=== PATIENT | female | born 1965 | race Caucasian/White ===

== ENCOUNTER 2023-10-20 20:50 | Observation (INO) | payer OTHER, SELFPAY ==
[2023-10-20 18:11] VITALS: BP 127/77
[2023-10-20 18:25] VITALS: BP 115/56
[2023-10-20 18:47] LABS: % Eosinophils 1.5 % (0-6); % Immature Granulocytes 0.2 % (0-0.5); % Lymphocytes 29.5 % (20.5-51.1); % Monocytes 5.6 % (1.7-9.3); % Neutrophils 62.2 % (42.2-75.2); Absolute Basophils 0.1 10^3/uL (0-0.2); Absolute Eosinophils 0.1 10^3/uL (0-0.7); Absolute Lymphocytes 2.4 10^3/uL (1.2-3.4); Absolute Monocytes 0.5 10^3/uL (0.1-0.6); Hematocrit 37.7 % (37.0-47.0); Hemoglobin 13.4 g/dL (12.0-16.0); Mean Corp Hgb Conc. 35.5 g/dL (33.0-37.0); Mean Corpuscular Hgb 29.7 pg (27.0-31.0); Mean Corpuscular Volume 83.6 fL (81.0-99.0); Nucleated Red Blood Cells % 0 %; Platelet Count 241 10^3/uL (130-400); Red Blood Cell Count 4.51 10^6/uL (4.20-5.40); Red Cell Dist. Width 12.7 % (11.5-14.5); White Blood Cell Count 8.1 10^3/uL (4.8-10.8)
[2023-10-20 18:58] LABS: ALT (SGPT) 18 U/L (0-35); AST (SGOT) 25 U/L (14-36); Albumin 4.5 g/dl (3.5-5.0); Alkaline Phosphatase 87 U/L (38-126); Blood Urea Nitrogen 18 mg/dl (7-17); Calcium 9.8 mg/dl (8.4-10.2); Carbon Dioxide 29 mmol/L (22-30); Chloride 103 mmol/L (98-107); Glucose 87 mg/dl (70-99); Potassium 3.8 mmol/L (3.5-5.1); Sodium 139 mmol/L (135-145); Total Bilirubin 0.6 mg/dl (0.2-1.3); eGFR > 60.00
[2023-10-20 19:00] VITALS: BP 105/61; BMI 32.4
--- NOTE | 2023-10-20 19:36 | ED.GENMED ---
History of Present Illness
General
Chief Complaint: Visual Problem
Source: patient and spouse
Exam Limitations: none
Time Seen by Provider: 10/20/23 18:19
Nursing documentation reviewed up to this point in time: agreed with
History of Present Illness
History of Present Illness:
58-year-old female with no reported chronic medical issues who presents to the emergency room with her for evaluation of blurry vision. Patient reports onset of symptoms around 4:30 PM and have been constant since that time. She reports
blurred vision in her left eye only. She denies any vision loss. She denies any eye pain. She reports that she looked in the mirror and noticed that her left eye appeared to be dilated and asymmetric and so she came to the emergency room for
assessment. She denies any headache. Denies any neck pain. She denies any change in her speech. She denies any focal weakness or numbness. Denies any dizziness. She says that she had a similar episode around 10 PM on evening but that
it went away after short period of time and so she did not seek care. She denies any trauma.
Past History
Past History
ED Past Medical History: None
ED Past Surgical History: None
Social History
Tobacco: Non-smoker
Review of Systems
Review of Systems
All Other Systems: ROS reviewed and negative except as documented in HPI and ROS
Constitutional: Denies fever
EENT: Reports other (Blurry vision)
Cardiac: Denies chest pain or palpitations
ABD/GI: Denies abdominal pain, nausea or vomiting
: Denies flank pain
Musculoskeletal: Denies neck pain or back pain
Neurological: Denies dizzy, headache, weakness or numbness
Phy Exam
Physical Exam
Physical Exam:
General: Awake, alert, oriented x3; no acute distress
Head: Normocephalic, atraumatic
Eyes: Conjunctiva normal, patient has anisocoria with left pupil dilated to approximately 7 mm, right pupil approximately 3 mm; pupils are both briskly reactive to light and accommodation with no afferent or efferent pupillary defect, anisocoria
more pronounced in light; extraocular motor intact; questionable very subtle ptosis left eye
Throat: Airway intact, handling secretions
Neck: Trachea midline, supple without meningismus
Lungs: Clear to auscultation bilaterally, no wheezing, rales, rhonchi
Heart: Regular rate and rhythm, no murmurs, gallops, or rubs
Abd: Soft, non distended, nontender
Neuro: Anisocoria as above, cranial nerves otherwise intact, speech fluent with no dysarthria or aphasia, no limb ataxia, motor and sensory function is intact and symmetric proximally and distally in the upper and lower extremities
Skin: no rash
Extremities: Warm well-perfused with good equal pulses in all extremities
Scores
NIH Stroke Score
Level of Consciousness: 0 - Alert
LOC Questions: 0-Answers both correctly
LOC Commands: 0-Performs both correctly
Best Horizontal Gaze: 0-Normal
Visual Guidyr: 0=Normal, no visual loss
Facial Palsy: 0=Normal, symmetrical
Motor - Right Arm: 0=No drift 10 seconds
Motor - Left Arm: 0=No drift 10 seconds
Motor - Right Le-No drift 5 seconds
Motor - Left Le-No drift 5 seconds
Limb Ataxia: 0-Absent
Sensation: 0-Normal
Best Language: 0-No aphasia
Dysarthria: 0-Normal
Extinction and Inattention: 0-No abnormality
Total Score:: 0
Heart Failure Risk
Heart Failure Risk Score: Not Applicable
Heart Score for Chest Pain Patients
STEMI patient?: Not applicable
Withdrawal Assessment of Alcohol
Withdrawal Assessment Completed?: Not applicable
Course
Orders/Labs/Results
Orders:
Orders
10/20/23 18:10
EKG [Electrocardiogram (*1)] Urgent
Reason for Study: Chest Pain
10/20/23 18:35
CT Head/Neck Ang STROKE ALERT Urgent
Reason For Exam: Left eye elzbieta's syndrome
10/20/23 18:36
Electrocardiogram (*1) Urgent
Reason for Study: TIA/Stroke
EKG- Treatment ONCE
CR Chest - 2 Views Urgent
Comment:
Reason For Exam: left elzbieta's syndrome
10/20/23 18:39
CT Head W/o Cont STROKE ALERT Urgent
Reason For Exam: left elzbieta's syndrome
10/20/23 18:42
Complete Blood Count/With Diff Urgent
Comprehensive Metabolic Panel Urgent
10/20/23 20:23
Aspirin 325 mg PO NOW STA
10/20/23 20:44
Admit/Transfer Patient As Directed
Co-Sign Provider:
Level of Care: Observation services
Assign to:: Telemetry
Physician / Group: wilbery
Diagnosis: acute abnormal blurry vision in Lt eye only with asymmetric pupil
Reason for Telemetry: CVA/TIA
Date to Stop Telemetry: 10/23/23
Time to Stop Telemetry: 11:00
Reason for Hospitalization: acute abnormal blurry vision in Lt eye only with asymmetric pupil
10/20/23 20:45
PRN Pain Medication Management As Directed
May give lesser potent ordered pain med per pt: Yes
preference::
Protocol:: Medication orders for pain may be administered in a
manner that supports deferring to patient preference
when the pt is:
- Requesting an ordered lesser potent pain medication.
Least to most potent pain medications are defined
as: acetaminophen < NSAID < tramadol < opioids
(morphine, oxycodone, hydromorphone).
- Requesting a lesser dose of the same medication IF
ORDERED.
- Requesting a less intrusive route of administration
if both routes are prescribed by the provider (PO <
IV).
10/20/23 20:46
Code Status As Directed
Resuscitation Status: Full Code
10/20/23 21:59
Acetaminophen [Tylenol/Feverall] 650 mg RECTAL Q4HPRN PRN
Acetaminophen [Tylenol] 650 mg PO Q4HPRN PRN
10/20/23 21:59
Case Management Consult ONCE
Case Management Consult: Discharge Planning
Comment: stroke/tia
DIETARY CONSULT Routine
Reason for Consult: stroke/TIA
NEUROLOGY CONSULT Urgent
Consulting Provider: Cee Dalton
Was physician already notified: Yes
Reason for consult: acute abnormal blurry vision in Lt eye only with asymmetric pupil
Pulp Beater Urgent
MR Brain With Contrast Routine
Comment:
Reason For Exam: stroke/TIA
Recent pill cam endoscopy?: No
Activity As Directed
Activity Level: With Assistance
NIH Stroke Scale As Directed
Directions: Per protocol
Comment: every shift and with any change in condition or mental status
Neurological Checks As Directed
Frequency: q4h
Additional Instructions:: q4h x 24h upon admission to the floor, then qshift & with any change in condition
and mental status
Patient Education As Directed
Type: Stroke education packet
Comment: provide to patient and family
Pneumatic Compression Sleeves As Directed
Type: Knee high
Vital Signs As Directed
Frequency: Per unit guidelines
Ot Eval And Treat Routine
DX Deep Vein Thrombosis Video Routine
10/20/23 22:00
Sertraline HCl [Zoloft] 200 mg PO HS
10/21/23 06:00
Cardiovascular Evaluation IN AM
10/21/23 08:00
Aspirin Chewable [Low Strength Aspirin] 81 mg PO DAILY
Multivitamin [Theragran] 1 tablet PO DAILY
10/23/23 11:00
DC Protocol for Telemetry ONCE
Abnormal Lab Results
10/20/23
18:42
MPV 11.0 H fL
(7.4-10.4)
BUN 18 H mg/dl
(7-17)
10/20/23 18:42
10/20/23 18:42
Vital Signs
Initial and Last Documented VS:
Initial Vital Signs
Temp Pulse Resp BP Pulse Ox
36.7 C 69 18 127/77 95
10/20/23 18:11 10/20/23 18:11 10/20/23 18:11 10/20/23 18:11 10/20/23 18:11
Last Documented Vital Signs
Temp Pulse Resp BP Pulse Ox
36.7 C 64 18 110/71 98
10/20/23 18:11 10/20/23 22:00 10/20/23 22:00 10/20/23 21:00 10/20/23 22:00
MDM/Problems Addressed
Differential Diagnosis Includes:
Stroke, brain mass, demyelinating disease, dissection, aneurysm, Pancoast tumor, cervical rib; anisocoria could also be environmental (was working in the yard earlier today, could be [employer] weed exposure), medication related (although patient denies
any anticholinergic use)
MDM/Problems Addressed:
58-year-old female presents with blurry vision appears to have acute onset of left anisocoria and question Elzbieta syndrome on the left�very subtle ptosis that patient feels is asymmetric. Onset approximately 4:30 PM. No other complaints. Vital
signs are normal. Physical exam as above. Case was discussed with neurology ultimately called as a stroke alert. Will send for a CT head and a CTA head and neck. Check labs including a CBC and a CMP. Will check an EKG. Will check a chest
x-ray. Monitor closely reassess after the above.
CT head negative for any acute pathology. CTA head and neck negative. Labs reviewed: CBC and CMP no clinically significant abnormalities. Chest x-ray reviewed by me shows no acute abnormalities, no clear signs of a Pancoast tumor. Case discussed
with neurology�recommended no TNK for now given NIH stroke scale 0. Recommended loading with aspirin. Recommended discussing with [facility] to discuss if transfer will be necessary to consider conventional angiography. Will reassess after the
above.
Case discussed with neurovascular attending at [facility] he said that there is no indication for transfer for conventional angiography with negative CTA here. I also discussed the case with ophthalmology they feel could be related to Adie's pupil,
if stroke completely ruled out they can see patient in the office. Will admit for MRI to rule out stroke and neurology consultation. Case discussed with hospitalist.
*Critical Care Note
Total Time (30-74mins, 75-104mins- exclusive of procedures): Not Applicable
Patient Management
Discussion with other providers: Hospitalist (Discussed with hospitalist) and Abalone Processor (Discussed with neurology, ophthalmology)
Escalation/DeEscalation of care consider admission/obs:
Admission indicated
ED Attending Note
-
Portions of this chart may have been created with voice recognition software.� Occasional wrong word or��sound alike� substitutions may have occurred due to the inherent limitations of voice recognition software.
Discharge Plan
Departure
Patient Disposition: Admit
Date of Disposition: 10/20/23
Time of Disposition: 20:21
Admit to doctor: Rika
Presentation/result/management discussed w/ accepting MD/DO: Hospitalist
Discharge Problem:
Anisocoria
Interventions
Interventions:
*Risk Screen - Suicide Last Done: 10/20/23 19:31
*General Assessment Last Done: 10/20/23 18:11
*Neglect/Abuse Screening Last Done: 10/20/23 19:31
ED- Fall Risk Assessment Last Done: 10/20/23 19:03
*ED COVID-19 Vaccine History Last Done: 10/20/23 18:11
*Nursing Disposition Last Done: 10/20/23 22:02
ED- Neurological Assessment Last Done: 10/20/23 19:03
ED-EENT Assessment Last Done: 10/20/23 19:03
ED Swallowing Screen Last Done: 10/20/23 21:00
Discharge Date and Time
Discharge Date/Time: 10/20/23 21:50
[2023-10-20 20:08] VITALS: BP 117/66
--- NOTE | 2023-10-20 20:39 | HPS.HSE ---
Family Physician
-
Family Physician: Asha Bertrand
Chief Complaint
-
stroke alert for abn vision
History of Present Illness
58F Non smoker, seen at ER for evaluation for blurry viosn and pre hospital stroke alert
Acute abnormal blurry vision
- reports Lt eye only
- onset around 4:30 PM and have been persisitent
- Denies loss of vision , retroorbital eye pain
- Noted asymmetric pupils with dilated pupil on the Lt > Rt
- similar episode around 10 PM on but that it went away after short period of time and so she did not seek care
- No VILLARREAL
- No focal weakness or numbness.
- No dizziness
- ASA 325 mg now at ER
on Wegovy for wt loss
Medical History
Past Medical History
Past Medical History: Reports Psychiatric (depression ) and Other (Wegovy for wt loss )
Past Surgical History: Reports None
Social History
Tobacco: Non-smoker
Alcohol: None
Drug: None
Family History
Family History: Not pertinent
Allergies / Home Medications
Allergies reflects when Allergies were last updated in [employer].
Home Medications with original date entered in [employer]
Allergy/Medication List:
Allergies
Allergy/AdvReac Type Severity Reaction Status Date / Time
No Known Allergies Allergy Verified 10/20/23 19:03
Home Medications
aspirin 81 mg tablet,delayed release 81 mg PO DAILYPRN PRN chest pains 10/20/23
semaglutide (weight loss) 1 mg/0.5 mL subcutaneous pen injector (Wegovy) 0.5 mg SC ROBISON 10/20/23
sertraline 200 mg capsule 200 mg PO HS 10/20/23
therapeutic multivitamin 1 tab PO DAILY 10/20/23
Review of Systems
-
Constitutional: Reports No Symptoms
EENT: Reports See HPI
Respiratory: Reports No Symptoms
Cardiac: Reports No Symptoms
Abdomen/GI: Reports No Symptoms
: Reports No Symptoms
Musculoskeletal: Reports No Symptoms
Skin: Reports No Symptoms
Neurological: Reports No Symptoms
Endocrine: Reports No Symptoms
Hematologic/Lymphatic: Reports No Symptoms
Psych: Reports No Symptoms
Physical Exam
Vital Signs
Vital Signs
Temp Pulse Resp BP Pulse Ox
98.1 F 69 18 105/61 95
10/20/23 18:11 10/20/23 19:00 10/20/23 19:00 10/20/23 19:00 10/20/23 19:00
Physical Exam
General: Well Developed, Well Nourished and No Apparent Distress
HEENT: NormoCephalic, Moist mucous membranes, Atraumatic and Other (left pupil: dilated to approximately 7 mm Right pupil: approximately 3 mm both briskly reactive to light and accommodation , questionable very subtle ptosis left eye)
Respiratory: Clear
Cardiac: S1/S2 and Regular Rhythm; No Murmur or Rub
GI: Soft, Non Tender, Non Distended and Normal Bowel Sounds; No Organomegaly
Rectal: Deferred by Provider
Musculoskeletal: No Clubbing, No Cyanosis and No Edema
Skin: No Rash
Neuro: AO x 3 and Nonfocal/grossly intact
Laboratory Results
-
10/20/23 18:42
10/20/23 18:42
Laboratory Results
Total Bilirubin 0.6 mg/dl (0.2-1.3) 10/20/23 18:42
AST 25 U/L (14-36) 10/20/23 18:42
ALT 18 U/L (0-35) 10/20/23 18:42
Alkaline Phosphatase 87 U/L (38-126) 10/20/23 18:42
Data Reviewed
-
CT Scan: Report Reviewed by me
Lab Data: Labs Reviewed by me
Impression/Plan
-
Reviewed VS: unremarkable
Data: Unremarkable CBC and CMP
10/20/23 CXR: Normal
10/20/23 HCT: Normal
10/20/23: CT Head/Neck Ang STROKE ALERT : Normal
NO PRIOR DH/ hospitalist admission:
ASSESSMENT & PLAN
Second episode of acute abnormal blurry vision in Lt eye only with asymmetric pupil with persistent dilated Lt Pupil
First episode was transient and spontaneously resolved
NIH Zero on arrival
- Not a TNK candidate
- unremarkable HCT, CTA H & N
- cont. Baby ASA daily
- A1c, Lipids check
- MRI Brain in AM ; If MR normal and CVA ruled out, Cnc Router Operator to see as OP
- Neuro consulted
On Semaglutide ( Wegovy) weekly for 2 months for wt loss
Depression on Sertraline
DVT Px: SCD
Code: Full
Obs TLM
[2023-10-20 21:00] VITALS: BP 110/71
[2023-10-20] MEDS: ASPIRIN 325 MG PO (21:02)
--- NOTE | 2023-10-20 22:00 | PTCARENOTE ---
Pt arrived from ED via stretcher, oob to bed independently, steady gait. see NIH documentation. C/o mild L eye blurriness. nsr on monitor. pox 98% on RA. oriented to room. call mcrae within reach.
[2023-10-20] MEDS: ZOLOFT 200 MG PO (22:39)
[2023-10-20 22:50] VITALS: BP 120/69
[2023-10-20 23:30] VITALS: BMI 31.2
[2023-10-21] VITALS (7 sets, daily range): BP systolic 100–115; BP diastolic 43–62
[2023-10-21] MEDS: THERAGRAN 1 TABLET PO (08:20)
[2023-10-21] MEDS: LOW STRENGTH ASPIRIN 81 MG PO (08:20)
[2023-10-21 08:47] LABS: HDL Cholesterol 53 mg/dl; LDL Cholesterol, Calculated 174 mg/dl; Total Cholesterol 249 mg/dl (50-199); Triglyceride 110 mg/dl (10-149); Very Low Density Lipoprotein 22 mg/dl (0-30)
--- NOTE | 2023-10-21 10:00 | CON.NEURO4 ---
Consultation - Neurology 4
-
CONSULTING PHYSICIAN: Krystle
REFERRING PHYSICIAN: Dr. Mazin JR
DICTATED BY: Krystle
DATE/TIME OF REQUEST: 10/20/23 in the evening
DATE/TIME OF CONSULTATION: 10/21/23 in AM
Reason for Consultation: Elzbieta's syndrome, stroke alert
History of Present Illness:
58-year-old female with history of depression brought in yesterday evening for evaluation for blurred vision. She states that around 4:30 PM she started having blurred vision in her left eye only. She denied any vision loss/blacked out vision or
any eye pain. She noticed that her left pupil was very dilated/asymmetric and came to the ER. She had a similar episode on evening around 10 PM that was transient (L eye blurred vision) says she did not seek any medical care--she went to
bed and when she woke up Sunday it had resolved. She denies any trauma. No neck or facial pain.No clear history of stroke or demyelinating disease. CT/CTA ruled out hemorrhage/dissection/aneurysm as cause for symptoms. She was loaded with
aspirin 325 in the ER. She is on Wegovy for weight loss.
She reports that her ptosis and L pupillary dilation gradually improved and as of about 9:30am this morning had completely resolved, as had her blurred vision.
Past Medical History: depression
Surgical History: none
Family History: no h/o MS or stroke
Social History: nonsmoker
Allergies
No Known Allergies Allergy (Verified 10/20/23 19:03)
Home Medications
�Medication �Instructions �Recorded
aspirin 81 mg tablet,delayed 81 mg PO DAILYPRN PRN chest pains 10/20/23
release
semaglutide (weight loss) 1 mg/0.5 0.5 mg SC ROBISON 10/20/23
mL subcutaneous pen injector
(Wegovy)
sertraline 200 mg capsule 200 mg PO HS 10/20/23
therapeutic multivitamin 1 tab PO DAILY 10/20/23
Review of Symptoms:
Patient denies any fever, headache, chest pain, shortness of breath, GI or symptoms.
�Per the HPI.�All systems are reviewed negative except above.
Vital Signs
Temp Pulse Resp BP Pulse Ox
98.0 F 60 17 111/62 96
10/21/23 08:05 10/21/23 08:05 10/21/23 08:05 10/21/23 08:05 10/21/23 08:05
Lab Results
10/20/23 18:42
10/20/23 18:42
Sodium 139 mmol/L (135-145) 10/20/23 18:42
Potassium 3.8 mmol/L (3.5-5.1) 10/20/23 18:42
BUN 18 mg/dl (7-17) H 10/20/23 18:42
Glucose 87 mg/dl (70-99) 10/20/23 18:42
Calcium 9.8 mg/dl (8.4-10.2) 10/20/23 18:42
LDL Cholesterol, Calc 174 mg/dl 10/21/23 08:05
Physical Exam:
The patient is afebrile, heart sounds S1 and S2 are regular. and chest is clear to auscultation bilaterally.
NIH Stroke Scale:
I performed the NIH stroke scale on the patient on 10/21/23 at 1100. The patient scored 0 points on the NIH stroke scale assessment.
Neurologic Examination:
The patient is awake, alert and oriented x 3. She is able to follow commands and answer questions appropriately. There is no aphasia or dysarthria. On cranial nerve assessment, L pupil 4mm, R pupil 2mm. Visual de la cruz are full. Extraocular movements
are intact. Facial sensations are intact and bilaterally symmetrical, there is no facial asymmetry. Hearing is intact bilaterally to normal conversation volume. Tongue palate and uvula are midline. Sternocleidomastoid strengths are full
bilaterally. Motor strengths are 5/5 bilateral upper and lower extremities on medical research Dille scale. There is no drift or involuntary movement noted. Deep tendon reflexes are 2+ bilateral upper and lower extremities and Babinski is absent
bilaterally. Sensations of pain, touch, temperature and vibration are intact and bilaterally symmetrical. There was no extinction noted on double simultaneous stimulation. Coordination is intact by finger to nose bilaterally.
Neuro Imaging:
HCT:normal
CTA head/neck: normal
CT Cspine:
'There is no fracture.
Vertebral body stature is maintained throughout.
There are no significant blastic or lytic bone lesions.
There is multilevel cervical degenerative disc disease as will be outlined below.
C2-3.
Normal
C3-4.
Moderate right-sided uncinate osteophyte is associated with moderate right C4 foraminal stenosis
C4-5.
Moderate right-sided degenerative facet joint disease along with small right-sided uncinate osteophyte is associated with moderate right C5 foraminal stenosis
C5-6.
Normal
C6-7.
There is degenerative disc disease with mild loss of disc stature and mild concentric bulging of the intervertebral disc which along with posterior spurring off the adjacent endplates, is associated with mild impingement upon the anterior aspect of
the left-sided the thecal sac and minimal impingement upon the anterior aspect of the left side of the cervical cord
C7-T1.
Normal
IMPRESSION:
No acute osseous abnormalities.
Multilevel cervical degenerative disc disease as outlined above.'
Impression:
BUBBA HARPER is a 58 year old F who has presented to the hospital with blurred vision and concern for Elzbieta's syndrome. HCT, CTA head/neck and CT Cspine done in the ER showed no acute findings/dissection/aneurysm as cause for symptoms.
Differential for this is broad and includes: stroke, demyelinating disease, apical lung tumor, brain tumor, cervical rib, mediastinal tumor, arteritis, cavernous sinus lesion and cluster headache. Aneurysm and dissection seem less likely given
negative CTA. Blurred vision and ptosis have now resolved.
Patient has the following risk factors for their symptoms: none beyond age
IV Tenecteplase/IAT candidacy: NIHSS 0 and not clearly a stroke (differential is broad) so no TNK given; no LVO seen on CTA for IAT
Recommendations:
1. continue ASA in case this is stroke
2. MRI brain w/wo with attn to cavernous sinus, MRI C and T spines w/wo contrast
3. CT chest
4. neurochecks-check MRI brain without contrast to evaluate for stroke
5. CTA head/neck reviewed
6. BP goal is normotension.
Will need remainder of stroke workup if MRI brain positive for stroke.
If imaging is negative for causes of symptoms, agree that she can see ophthalmology as an outpatient; case was discussed with them in the ER.
Discussed patient care with: Dr. Mazin Jr, patient
--- NOTE | 2023-10-21 10:48 | W.PN.HOSP.TC ---
Today's Communication/Plan
-
MRI pending
Start statin
Neurology recs
Continue aspirin
Assessment / Plan
Assessment / Plan
Second episode of acute abnormal blurry vision in Lt eye only with asymmetric pupil with persistent dilated Lt Pupil
First episode was transient and spontaneously resolved
NIH Zero on arrival
- Not a TNK candidate
- unremarkable HCT, CTA H & N. ER correspondence noted and patient case was discussed with neurovascular at [facility] and no need for transfer.
- cont. Baby ASA daily
-Total cholesterol elevated 239. LDL at 124. Start statin
- MRI Brain in AM ; If MR normal and CVA ruled out, Pipeline Controller to see as OP
- Neuro consulted
On Semaglutide ( Wegovy) weekly for 2 months for wt loss
Depression on Sertraline
DVT Px: SCD
Code: Full
Anticipated Discharge: Within 24 hours
Subjective/Interval History
-
Date of Service: October 21, 2023
Mild blurriness left eye
no other focal complaints
watching tv wtih eye glasses
sees hotel manager as outpatient
Objective Data
-
Vital Signs:
Vital Signs
Temp Pulse Resp BP Pulse Ox
98.0 F 60 17 111/62 96
10/21/23 08:05 10/21/23 08:05 10/21/23 08:05 10/21/23 08:05 10/21/23 08:05
I&O
10/20/23 10/21/23 10/22/23
06:59 06:59 06:59
Intake Total 480 / 480
Balance 480 / 480
Physical Exam
-
General: Well Developed and No Apparent Distress
HEENT: Normocephalic, Atraumatic, Moist Mucous Membranes and Other (Left pupil dilated >R pupil)
Respiratory: Clear to Auscultation
Cardiac: Regular Rhythm and S1/S2; Negative Murmur, Rub or Gallop
GI: Soft, Nontender, Nondistended and Normal Bowel Sounds; Negative Organomegaly
Rectal: Deferred by Provider
Musculoskeletal: No Clubbing, No Cyanosis and No Edema
Skin: Negative Rash
Neuro: Awake, Alert, Oriented, No Motor Deficits and Nonfocal/Grossly Intact; Negative Tremors, Sedated, Slurred Speech or Facial Droop
Psych: Calm
--- NOTE | 2023-10-21 14:39 | CM ---
manager privacy reviewed patient's chart and met with patient and patient was admitted under OBS, OBS letter signed and placed on chart, patient lives with her spouse and son in a 2 story home no steps to enter, patient is independent with adl's and
ambulation, no dme, patient drives.
Pharmacy: [facility]
PCP: Dr. Bertrand.
[2023-10-21 15:26] LABS: Glycohemoglobin (HgbA1c) 5.6 % (4.0-5.6)
[2023-10-21] MEDS: LIPITOR 40 MG PO (17:22)
[2023-10-21] MEDS: ZOLOFT 200 MG PO (20:33)
[2023-10-22 03:21] VITALS: BP 117/69
[2023-10-22 07:25] VITALS: BP 107/55
[2023-10-22] MEDS: THERAGRAN 1 TABLET PO (08:55)
[2023-10-22] MEDS: LOW STRENGTH ASPIRIN 81 MG PO (08:55)
--- NOTE | 2023-10-22 10:48 | CM ---
Chart reviewed and plan is to home with family when stable.
Plan; Home with family when stable.
[2023-10-22 11:05] VITALS: BP 108/63
--- NOTE | 2023-10-22 12:39 | W.PN.UPDATE ---
Update Note
Progress Note Update
Ms. Chloé Aguirre has no neurological deficits on exam. Her MRI studies of the brain and cervical spine are within normal limits. Given these findings at this time she can be discharged home. She needs to follow-up with her primary care and
behavioral medicine with regards to her anxiety disorder.
[2023-10-22 15:46] VITALS: BP 110/54
--- NOTE | 2023-10-22 16:18 | W.PN.HOSP.TC ---
Today's Communication/Plan
-
dc to home
Assessment / Plan
Assessment / Plan
Second episode of acute abnormal blurry vision in Lt eye only with asymmetric pupil with persistent dilated Lt Pupil
First episode was transient and spontaneously resolved, current episode has fully resolved
NIH Zero on arrival
- Not a TNK candidate
- unremarkable HCT, CTA H & N. ER correspondence noted and patient case was discussed with neurovascular at [facility] and no need for transfer.
- cont. Baby ASA daily
-Total cholesterol elevated 239. LDL at 124. Start statin, as MRI is negative will start Lipitor at lower dose
- MRI Brain: There are no focal or acute intracranial abnormalities.
No hemorrhage, neoplasm, demyelinating disease or ischemic changes are demonstrated
The Cavernous sinuses are normal with no evidence of carotid cavernous fistula/aneurysm
The brainstem is normal
There are no areas of abnormal contrast enhancement
There are no areas of diffusion abnormality to suggest infarct/acute ischemia.
There is no intracranial hemorrhage.
There is no edema or mass effect to suggest neoplasm.
There are no abnormal extra-axial fluid collections.; MR normal and CVA ruled out, Insulation Applicator to see as OP
- Neuro consulted reviewed with Dr. Chatman
On Semaglutide ( Wegovy) weekly for 2 months for wt loss
potential side effect. Needs to stop until seen by opth
Depression on Sertraline
DVT Px: SCD
Code: Full
dc to home
reviewed with
see dictated note
Anticipated Discharge: Today
Subjective/Interval History
-
Date of Service: October 22, 2023
Feels fine, vision is totally back to normal
Objective Data
-
Vital Signs:
Vital Signs
Temp Pulse Resp BP Pulse Ox
97.9 F 66 17 110/54 96
10/22/23 15:46 10/22/23 15:46 10/22/23 15:46 10/22/23 15:46 10/22/23 15:46
I&O
10/21/23 10/22/23 10/23/23
06:59 06:59 06:59
Intake Total 480 / 480 1140 / 1140
Balance 480 / 480 1140 / 1140
Review of Systems
-
History Source: Patient and Family (reviewed with by phone in room)
Constitutional: Denies Fever
EENT: Reports No Symptoms Reported
Respiratory: Reports No Symptoms
Cardiac: Reports No Symptoms
Abdomen/GI: Reports No Symptoms
Musculoskeletal: Reports No Symptoms
Physical Exam
-
General: Well Developed and No Apparent Distress
HEENT: Normocephalic, Atraumatic, Moist Mucous Membranes and Other (Left pupil dilated >R pupil)
Respiratory: Clear to Auscultation
Cardiac: Regular Rhythm and S1/S2; Negative Murmur, Rub or Gallop
GI: Soft, Nontender, Nondistended and Normal Bowel Sounds; Negative Organomegaly
Rectal: Deferred by Provider
Musculoskeletal: No Clubbing, No Cyanosis and No Edema
Skin: Negative Rash
Neuro: Awake, Alert, Oriented, No Motor Deficits and Nonfocal/Grossly Intact; Negative Tremors, Sedated, Slurred Speech or Facial Droop
Psych: Calm
[2023-10-22] MEDS: LIPITOR 40 MG PO (17:21)
--- NOTE | 2023-10-23 07:26 | W.DS.TRANS ---
DC Summary - [employer]
-
Discharge Instructions:
Discharge Diagnosis/Procedures Acute Visual Changes
Diet Regular
Activity No restrictions
Driving Restrictions minimize driving until evaluated by opthamology
Bathing Restrictions None
Blood Work Lipid Profile in 3-4 weeks
Instructions:
Stand-Alone Forms:
Changes to Home Medications: Yes
Discharge Medications:
DC Medications w/original date entered in [facility]
aspirin 81 mg tablet,delayed release 81 mg PO DAILYPRN PRN chest pains 10/20/23
sertraline 200 mg capsule 200 mg PO HS 10/20/23
therapeutic multivitamin 1 tab PO DAILY 10/20/23
atorvastatin 10 mg tablet (Lipitor) 10 mg PO HS #30 tabs 10/22/23
Home Medication Changes
Lipitor added
Wegovy stopped
Pending Results: No
--- NOTE | 2023-10-23 07:40 | W.DS.TRANS ---
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
-
Discharge Instructions:
Discharge Diagnosis/Procedures Acute Visual Changes
Diet Regular
Activity No restrictions
Driving Restrictions minimize driving until evaluated by opthamology
Bathing Restrictions None
Blood Work Lipid Profile in 3-4 weeks
Instructions:
Stand-Alone Forms:
Changes to Home Medications: Yes
Discharge Medications:
DC Medications w/original date entered in [facility]
aspirin 81 mg tablet,delayed release 81 mg PO DAILYPRN PRN chest pains 10/20/23
sertraline 200 mg capsule 200 mg PO HS 10/20/23
therapeutic multivitamin 1 tab PO DAILY 10/20/23
atorvastatin 10 mg tablet (Lipitor) 10 mg PO HS #30 tabs 10/22/23
Home Medication Changes
Lipitor added
Wegovy stopped
Pending Results: No
== END 2023-10-22 17:41 | disposition home or self-care (01) ==
LOC: 4 WEST ACU 20:50
PROVIDERS: ADMITTING PHYSICIAN Internal Medicine; ATTENDING PHYSICIAN Internal Medicine; CONSULT PHYSICIAN Psychiatry & Neurology Neurology; EMERGENCY PHYSICIAN Emergency Medicine; FAMILY PHYSICIAN Internal Medicine Endocrinology, Diabetes & Metabolism
DX: H53.8 Other visual disturbances (principal); H57.02 Anisocoria; R07.9 Chest pain, unspecified; G90.2 Horner's syndrome; E66.9 Obesity, unspecified; M50.31 Other cervical disc degeneration, high cervical region; M48.02 Spinal stenosis, cervical region; E78.5 Hyperlipidemia, unspecified; M50.323 Other cervical disc degeneration at C6-C7 level; F32.A Depression, unspecified; Z79.82 Long term (current) use of aspirin; Z79.85 Long-term (current) use of injectable non-insulin antidiabetic drugs; Z98.82 Breast implant status; Z68.31 Body mass index [BMI] 31.0-31.9, adult
CPT/HCPCS: 70450; 70496; 70498; 70553; 71046; 71260; 72156; 80053; 80061; 83036; 85025; 93005; 97166; 99285; A9575; G0378; Q9967